=== PATIENT | female | born 1985 | race Caucasian/White ===

== ENCOUNTER 2018-03-11 18:20 | Emergency (ER) | payer OTHER ==
[~2018-03-11] VITALS: Ht 167.6 cm; Wt 89.4 kg
[2018-03-11] MEDS ORDERED: SPRINTEC 28 DA1 EACH (18:29)
== END 2018-03-11 21:09 | disposition home or self-care (01) ==
LOC: ER 18:20
DX: S93.492A Sprain of other ligament of left ankle, initial encounter (principal); X50.3XXA Overexertion from repetitive movements, initial encounter; Y93.89 Activity, other specified; Y92.69 Other specified industrial and construction area as the place of occurrence of the external cause; Y99.8 Other external cause status